=== PATIENT | male | born 1940 | race Caucasian/White ===

== ENCOUNTER 2020-04-30 00:53 | Emergency (ER) | payer MEDICARE ==
[2020-04-30 01:00] VITALS: TEMP 95.6
[2020-04-30 01:27] LABS: HEMATOCRIT 23.1 % (42.0-52.0); HEMOGLOBIN 7.4 g/dl (13.5-18.0)
[2020-04-30] MEDS ORDERED: NORVASC 10MG10 MG PO (01:31)
[2020-04-30] MEDS ORDERED: ASPIRIN 81M81 MG/TA2 PO (01:32)
[2020-04-30] MEDS ORDERED: ATIVAN 0.50.5 MG/TAB PO (01:32)
[2020-04-30] MEDS ORDERED: OSCAL 500 TAB500 MG PO (01:33)
[2020-04-30] MEDS ORDERED: ZYRTEC 10MG10 MG PO (01:33)
[2020-04-30] MEDS ORDERED: ARICEPT10 MG PO (01:34)
[2020-04-30] MEDS ORDERED: DULCOLAX S10 MG/SUPP RC (01:34)
[2020-04-30] MEDS ORDERED: PERIDEX (CHLOR480 ML MM (01:34)
[2020-04-30] MEDS ORDERED: DRIZALMA SPRINK20 MG PO (01:35)
[2020-04-30] MEDS ORDERED: FLEET MINE1 BOT/133 RC (01:35)
[2020-04-30] MEDS ORDERED: NEURONTIN400 MG/CAP PO (01:36)
[2020-04-30] MEDS ORDERED: PRINIVIL10 MG PO (01:36)
[2020-04-30] MEDS ORDERED: NEURONTIN600 MG/TAB PO (01:36)
[2020-04-30] MEDS ORDERED: FLONASEALLERGY NS (01:36)
[2020-04-30] MEDS ORDERED: MOBIC15 MG PO (01:37)
[2020-04-30] MEDS ORDERED: NAMENDA 10MG TA10 MG PO (01:37)
[2020-04-30] MEDS ORDERED: MILK OF MA400 MG/52 (01:38)
[2020-04-30] MEDS ORDERED: HYTRIN 2MG CAPSU2 MG PO (01:38)
[2020-04-30] MEDS ORDERED: REQUIP 1MG T1 MG/TAB PO (01:38)
[2020-04-30] MEDS ORDERED: TYLENOL 500MG500 MG PO (01:39)
[2020-04-30] MEDS ORDERED: VTAMINC250TA (01:39)
[2020-04-30] MEDS ORDERED: DESYREL 50MG50 MG PO ×2 (01:39)
[2020-04-30] MEDS ORDERED: VITAMIN D3400 I1 PO (01:40)
[2020-04-30] MEDS ORDERED: ROXANOL 20MG20 MG/ML PO (02:25)
[2020-04-30 03:20] VITALS: BP 123/112; PULSE 66
== END 2020-04-30 03:20 ==
LOC: COL.ER 00:53
PROVIDERS: Nurse Practitioner Primary Care
DX: K92.2 Gastrointestinal hemorrhage, unspecified (principal); M25.552 Pain in left hip; R51 Headache; I50.9 Heart failure, unspecified; I10 Essential (primary) hypertension; Z79.82 Long term (current) use of aspirin; W19.XXXA Unspecified fall, initial encounter